=== PATIENT | female | born 1960 | race Caucasian/White ===

== ENCOUNTER 2023-04-13 06:41 | Outpatient (OUT) | payer OTHER, SELFPAY ==
--- NOTE | 2023-04-13 07:12 | MM_ITS ---
Patient: ROSALES RUVALCABA Exam Date: 04/13/2023 : 1960 Gender:F Ordering : DR Varun Roth D.O. Admission #: [id number] Family : Order #: [id number] CLICK HERE TO VIEW EXAM RADIOLOGY REPORT PROCEDURE: MM TOMOSYNTHESIS SCREENING BI COMPARISON: MG MAMM SCREEN ROBBIE W CAD, 05/05/2019. INDICATIONS: Screening Calculator Name NCI Breast Cancer Risk Assessment Tool 5 Year Breast Cancer Risk 2.00% Lifetime Breast Cancer Risk 9.70% Personal Breast Cancer No Personal Ovarian Cancer No Treatments None Family Cancers None LOCATION: [facility] BREAST COMPOSITION: Scattered areas fibroglandular density. FINDINGS: DIAGNOSTIC CATEGORY 1--NEGATIVE. NO CHANGE FROM COMPARISON ASSESSMENT. Scattered benign-appearing calcifications are present. Scattered benign-appearing lymph nodes are present. RIGHT BREAST: No significant suspicious finding. LEFT BREAST: No significant suspicious finding. RECOMMENDATIONS: ROUTINE MAMMOGRAM AND CLINICAL EVALUATION IN 12 MONTHS. PLEASE NOTE: A NORMAL MAMMOGRAM DOES NOT EXCLUDE THE POSSIBILITY OF BREAST CANCER. A CLINICALLY SUSPICIOUS PALPABLE LUMP SHOULD BE BIOPSIED. Dictated by: Castillo Dodd MD on 04/13/2023 at 08:51 Approved by: Castillo Dodd MD on 04/13/2023 at 08:52
[2023-04-13 07:22] LABS: Basophils Percent Auto 0.4 % (0.2-2.0); Eosinophils Absolute Auto 0.1 10^3/uL (0.0-0.7); Eosinophils Percent Auto 1.7 % (0.9-7.0); Hematocrit 40.9 % (36.0-48.0); Hemoglobin 13.5 g/dL (12.0-16.0); Immature Granulocytes Abs Auto 0.01 10^3/uL (0.00-0.03); Immature Granulocytes Pct Auto 0.2 % (0.0-0.5); Lymphocytes Absolute Auto 1.2 10^3/uL (1.2-3.8); Lymphocytes Percent Auto 26.3 % (20.5-60.0); Mean Corpuscular Hemoglobin 30.1 pg (26.7-34.0); Mean Corpuscular Volume 91.1 fL (81.0-99.0); Mean Platelet Volume 9.9 fL (9.5-13.5); Monocytes Absolute Auto 0.5 10^3/uL (0.3-0.8); Monocytes Percent Auto 9.7 % (1.7-12.0); Neutrophils Absolute Auto 2.9 10^3/uL (1.4-6.5); Neutrophils Percent Auto 61.7 % (43.0-75.0); Platelet Count 206 10^3/uL (150-450); Red Blood Count 4.49 10^6/uL (4.20-5.40); Red Cell Distribution Width 12.4 % (11.0-15.0); White Blood Count 4.6 10^3/uL (4.0-11.0)
[2023-04-13 08:39] LABS: Alanine Aminotransferase 24 U/L (14-59); Albumin Globulin Ratio 0.9; Albumin Level 3.6 g/dL (3.4-5.0); Alkaline Phosphatase 51 U/L (46-116); Anion Gap 7.8; Aspartate Amino Transferase 18 U/L (15-37); BUN Creatinine Ratio 17.3; Bilirubin Total 0.8 mg/dL (0.2-1.0); Carbon Dioxide 31.1 mmol/L (21.0-32.0); Chloride 105 mmol/L (98-107); Chol HDL Ratio 3.6; Cholesterol 211 mg/dL (<=200); Estimated GFR (African America >60 (>=60); Estimated GFR (Non-African Ame 54 (>=60); Glucose 109 mg/dL (74-106); HDL Cholesterol 59 mg/dL (40-60); Potassium 3.9 mmol/L (3.5-5.1); Sodium 140 mmol/L (136-145); Thyroid Stimulating Hormone 1.799 uIU/mL (0.358-3.740); Total Protein 7.6 g/dL (6.4-8.2); Triglycerides 59 mg/dL (<=150); VLDL CHOLESTEROL 11.8 mg/dL
== END 2023-04-13 06:42 ==
LOC: MAMMO 06:46
PROVIDERS: PCP Internal Medicine; Visit Provider Internal Medicine
DX: Z00.00 Encounter for general adult medical examination without abnormal findings (principal); Z12.31 Encounter for screening mammogram for malignant neoplasm of breast
CPT/HCPCS: 36415; 77063; 77067; 80053; 80061; 84443; 85025

== ENCOUNTER 2024-04-09 06:50 | Outpatient (OUT) | payer OTHER, SELFPAY ==
--- NOTE | 2024-04-09 06:53 | MM_ITS ---
Patient Name: ROSALES RUVALCABA MR#: [id number] : 1960 Exam Date: 04/09/2024 Ordering Doctor: DR Varun Roth D.O. RADIOLOGY REPORT PROCEDURE: MM TOMOSYNTHESIS SCREENING BI COMPARISON: MM TOMOSYNTHESIS SCREENING BI, 04/13/2023. INDICATIONS: Screening Calculator Name NCI Breast Cancer Risk Assessment Tool 5 Year Breast Cancer Risk 2.10% Lifetime Breast Cancer Risk 9.40% Personal Breast Cancer No Personal Ovarian Cancer No Treatments None Family Cancers None LOCATION: [facility] BREAST COMPOSITION: There are scattered areas of fibroglandular density. FINDINGS: DIAGNOSTIC CATEGORY 1--NEGATIVE. NO CHANGE FROM COMPARISON ASSESSMENT. Scattered benign-appearing calcifications are present. Scattered benign-appearing lymph nodes are present. RIGHT BREAST: No significant suspicious finding. LEFT BREAST: No significant suspicious finding. RECOMMENDATIONS: ROUTINE MAMMOGRAM AND CLINICAL EVALUATION IN 12 MONTHS. PLEASE NOTE: A NORMAL MAMMOGRAM DOES NOT EXCLUDE THE POSSIBILITY OF BREAST CANCER. A CLINICALLY SUSPICIOUS PALPABLE LUMP SHOULD BE BIOPSIED. Dictated by: Castillo Dodd MD on 04/09/2024 at 08:58 Approved by: Castillo Dodd MD on 04/09/2024 at 09:02
[2024-04-09 07:52] LABS: Basophils Percent Auto 0.8 % (0.2-2.0); Eosinophils Absolute Auto 0.1 10^3/uL (0.0-0.7); Eosinophils Percent Auto 1.3 % (0.9-7.0); Hematocrit 40.7 % (36.0-48.0); Hemoglobin 13.1 g/dL (12.0-16.0); Immature Granulocytes Abs Auto 0.01 10^3/uL (0.00-0.03); Immature Granulocytes Pct Auto 0.3 % (0.0-0.5); Lymphocytes Absolute Auto 1.1 10^3/uL (1.2-3.8); Lymphocytes Percent Auto 28.3 % (20.5-60.0); Mean Corpuscular HGB Conc 32.2 g/dL (29.9-35.2); Mean Corpuscular Hemoglobin 29.9 pg (26.7-34.0); Mean Corpuscular Volume 92.9 fL (81.0-99.0); Mean Platelet Volume 10.8 fL (9.5-13.5); Monocytes Absolute Auto 0.3 10^3/uL (0.3-0.8); Monocytes Percent Auto 8.3 % (1.7-12.0); Neutrophils Absolute Auto 2.5 10^3/uL (1.4-6.5); Platelet Count 177 10^3/uL (150-450); Red Blood Count 4.38 10^6/uL (4.20-5.40); Red Cell Distribution Width 12.6 % (11.0-15.0)
[2024-04-09 09:08] LABS: Alanine Aminotransferase 28 U/L (14-59); Albumin Level 3.7 g/dL (3.4-5.0); Alkaline Phosphatase 47 U/L (46-116); Anion Gap 10.6; Aspartate Amino Transferase 23 U/L (15-37); BUN Creatinine Ratio 18.5; Bilirubin Total 0.6 mg/dL (0.2-1.0); Calcium 8.9 mg/dL (8.5-10.1); Carbon Dioxide 30.5 mmol/L (21.0-32.0); Chloride 105 mmol/L (98-107); Chol HDL Ratio 3.8; Cholesterol 218 mg/dL (<=200); Estimated GFR (African America >60 (>=60); Estimated GFR (Non-African Ame 51 (>=60); Globulin 3.8 g/dL; Glucose 101 mg/dL (74-106); HDL Cholesterol 57 mg/dL (40-60); Potassium 4.1 mmol/L (3.5-5.1); Sodium 142 mmol/L (136-145); Thyroid Stimulating Hormone 1.967 uIU/mL (0.358-3.740); Total Protein 7.5 g/dL (6.4-8.2); Triglycerides 62 mg/dL (<=150); VLDL CHOLESTEROL 12.4 mg/dL
== END 2024-04-09 06:51 | disposition home or self-care (01) ==
LOC: MAMMO 06:50
PROVIDERS: PCP Internal Medicine; Visit Provider Internal Medicine
DX: Z00.00 Encounter for general adult medical examination without abnormal findings (principal); Z12.31 Encounter for screening mammogram for malignant neoplasm of breast
CPT/HCPCS: 36415; 77063; 77067; 80053; 80061; 84443; 85025

== ENCOUNTER 2025-05-08 07:06 | Outpatient (OUT) | payer OTHER, SELFPAY ==
--- OUTSIDE RECORDS SUMMARY | 2025-05-08 07:09 | XMS_ITS | CCD ---
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 Name Role Phone VARUN JOHNSON Attending Unavailable VARUN JOHNSON Consulting Unavailable VARUN JOHNSON Admitting Unavailable Varun Johnson Unavailable Allergies Allergy Classification Reported Allergen(s) Allergy Type Date of Onset Reaction(s) Facility (5 sources) Angiotensin-con verting enzyme inhibitor agent Drug allergy [employer]ponDirect [facility] [employer] Other (5 sources) Shellfish Drug allergy Unknown [employer] [facility] [employer] Other (3 sources) Fish derivative Drug allergy 5 Comment:shell fish [facility] [employer] Other (2 sources) Angiotensin Converting Enzyme (Gavin) Inhibitors Allergy to substance 4 cough [facility] (2 sources) Shellfish Allergy to substance 4 Unknown Reaction [facility] (2 sources) Fish Containing Products Allergy to substance 4 Comment:shell fish [facility] Comment on above: Onset Date: 05/07/20 15 Medications Current Medications Medication Drug Class(es) Dates Sig (Normalized) Sig (Original) amLODIPine 5 mg oral tablet (8 sources) Dihydropyridine Calcium Channel Kari Start: 06-20-2024 take 1 tablet by mouth once daily Amlodipine 5 mg tablet Active 0 .ROUTE .COMPLEX 90 June 20, 2024 10:20am TAKE 1 TABLET BY MOUTH EVERY DAY Start: 03-21-2024 End: 06-20-2024 take 1 tablet by mouth once daily Amlodipine 5 mg tablet Discontinued 5 MG PO Daily March 21, 2024 12:00am June 20, 2024 10:20am take 1 tablet by ramila th every twenty-four hours amLODIPine Besylate 5 MG 1 tablet Orally Once a day Active codeine phosphate 2 mg/ml / guaiFENesin 20 mg/ml oral solution (1 source) Opioid Agonist Start: 10-24-2023 take 10 mL by mouth four times daily as needed for cough guaiFENesin-Codeine 100-10 MG/5ML 10 mL as needed Orally qid as needed for cough for 7 days Sep, Active doxycycline hyclate 100 mg oral capsule (1 source) Tetracycline-cla ss Drug Start: 10-24-2023 take 1 capsule by mouth every twelve hours Doxycycline Hyclate 100 MG 1 capsule Orally Twice a day for 5 days Sep, Active escitalopram 5 mg oral tablet (2 sources) Serotonin Reuptake Inhibitor Start: 11-13-2022 take 1 tablet by mouth every twenty-four hours Escitalopram Oxalate 5 MG 1 tablet Orally Once a day for 30 day(s) Oct, Active losartan potassium 100 mg oral tablet (8 sources) Angiotensin 2 Receptor Krai Start: 09-26-2024 take 1 tablet by mouth once daily Losartan 100 mg tablet Active 0 .ROUTE .COMPLEX 90 September 26, 2024 8:06am TAKE 1 TABLET BY MOUTH EVERY DAY Start: 03-21-2024 End: 09-26-2024 take 1 tablet by mouth once daily Losartan 100 mg tablet Discontinued 100 MG PO Daily March 21, 2024 12:00am September 26, 2024 8:06am take 1 tablet by ramila th every twenty-four hours Losartan Potassium 100 MG 1 tablet Orally Once a day Active Magnesium (1 source) Start: 10-10-2024 take 4 tablets by mouth once daily Magnesium 200 mg tablet Active 800 MG PO Daily October 10, 2024 1:00am pantoprazole 40 mg delayed release oral tablet (8 sources) Proton Pump Inhibitor Start: 06-20-2024 take 1 tablet by mouth once daily at breakfast Pantoprazole 40 mg tablet,delayed release (DR/EC) Active 0 .ROUTE .COMPLEX 90 June 20, 2024 10:20am TAKE 1 TABLET BY MOUTH ONCE A DAY ON AN EMPTY STOMACH FOLLOWED IN 30 MINUTES BY BREAKFAST Start: 03-21-2024 End: 06-20-2024 take 1 tablet by mouth once daily Pantoprazole 40 mg tablet,delayed release (DR/EC) Discontinued 40 MG PO Daily March 21, 2024 12:00am June 20, 2024 10:20am take 1 tablet by ramila th every twenty-four hours Pantoprazole Sodium 40 MG 1 tablet Orally Once a day Active 24 hr venlafaxine 37.5 mg extended release oral capsule (1 source) Serotonin and Norepinephrine Reuptake Inhibitor Start: 03-27-2025 take 1 capsule by mouth once daily Venlafaxine 37.5 mg capsule,extended release 24hr Active 37.5 MG PO Daily March 27, 2025 12:00am Problems Active Problems Problem Classification Problem Date Documented Date Episodic/Chronic Acute bronchitis (1 source) Acute bronchitis due to other specified organisms Episodic Chronic kidney disease (1 source) Chronic kidney disease; Translations: [Chronic kidney disease, unspecified] 04-14-2024 Chronic Complications of surgical procedures or medical care (5 sources) Postsurgical menopause; 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] Chronic Esophageal disorders (7 sources) Gastro-esophageal reflux disease with esophagitis; Translations: [Gastroesophageal reflux disease with esophagitis without hemorrhage] 03-19-2024 Chronic Essential hypertension (17 sources) Hypertensive disorder; Translations: [Essential (primary) hypertension] Chronic Malaise and fatigue (7 sources) Weakness; Translations: [Other fatigue] Onset: 10-06-2020 Episodic Miscellaneous mental health disorders (6 sources) Primary insomnia; Translations: [Primary insomnia] Chronic Mood disorders (17 sources) Seasonal affective disorder; Translations: [Other recurrent depressive disorders] Chronic Other acquired deformities (1 source) Mallet finger; Translations: [Mallet finger of right finger(s)] 10-10-2024 Episodic Other nutritional; endocrine; and metabolic disorders (1 source) Obese class I; Translations: [Obesity, unspecified] Chronic Other nutritional; endocrine; and metabolic disorders (5 sources) Obesity; Translations: [Obesity, unspecified] Chronic Other nutritional; endocrine; and metabolic disorders (1 source) Obesity, unspecified Chronic Other nutritional; endocrine; and metabolic disorders (3 sources) Body mass index 30+ - obesity; Translations: [Body mass index (BMI) 33.0-33.9, adult] Chronic Other nutritional; endocrine; and metabolic disorders (3 sources) Obesity caused by energy imbalance; Translations: [Other obesity due to excess calories] Chronic Other nutritional; endocrine; and metabolic disorders (1 source) Other obesity due to excess calories Chronic Other nutritional; endocrine; and metabolic disorders (1 source) Body mass index (BMI) 33.0-33.9, adult Chronic Other screening for suspected conditions (not mental disorders or infectious disease) (4 sources) Encounter for screening mammogram for malignant neoplasm of breast; Translations: [Encounter for screening for malignant neoplasm of colon] Episodic Spondylosis; intervertebral disc disorders; other back problems (13 sources) Lumbosacral spondylosis with radiculopathy; Translations: [Other spondylosis with radiculopathy, lumbosacral region] Chronic Past or Other Problems Problem Classification Problem Date Documented Da te Episodic/Chronic Esophageal disorders (3 sources) Esophageal disorders; Translations: [Gastroesophageal reflux disease with esophagitis without hemorrhage] Viral infection (1 source) Disease caused by 2019-nCoV; Translations: [COVID-19] Results Test Name Value Interpretation Reference Range Facil ity CBC AUTO DIFFon 10-06-2020 Basophils (Bld) [#/Vol] 0.0 103/ul Normal 0.0-0.1 [facility] [place] Comment on above: Performed By: #### C BC #### [facility] [address] [place], [place] [phone] Shabbir Emperatriz Basophils/100 WBC (Bld) 0.2 % Normal 0.2-2.0 [facility] [place] Comment on above: Performed By: #### C BC #### [facility] [address], [place] [address] Shabbir Emperatriz Eosinophils (Bld) [#/Vol] 0.0 103/ul Normal 0.0-0.7 [facility] [place] Comment on above: Performed By: #### C BC #### [facility] [address] [place], [place] [phone] Shabbir Emperatriz Eosinophils/100 WBC (Bld) 0.7 % Critically low 0.9-7.0 [facility] [place] Comment on above: Performed By: #### C BC #### [facility] [address], [place] [address] Shabbir Emperatriz Erythrocyte distribution width (RBC) [Ratio] 11.7 % Normal 11.0-15.0 [facility] [place] Comment on above: Performed By: #### C BC #### [facility] [address] [place], [place] [phone] Shabbir Emperatriz Hematocrit (Bld) [Volume fraction] 35.8 % Critically low 36.0-48.0 [facility] [place] Comment on above: Performed By: #### C BC #### [facility] [address] [place], [place] [phone] Shabbir Emperatriz Hemoglobin (Bld) [Mass/Vol] 12.2 g/dL Normal 12.0-16.0 [facility] [place] Comment on above: Performed By: #### C BC #### [facility] [address] [place], [place] [phone] Shabbir Emperatriz IG # 0.02 10e3/ul Normal 0.00-0.03 [facility] [place] Comment on above: Performed By: #### C BC #### [facility] [address] [place] [address] Shabbir Emperatriz IG % 0.3 % Normal 0.0-0.5 [facility] [place] Comment on above: Performed By: #### C BC #### [facility] [address] [place] [address] Shabbir Emperatriz Lymphocytes (Bld) [#/Vol] 1.5 103/ul Normal 1.2-3.8 [facility] [place] Comment on above: Performed By: #### C BC #### [facility] [address] [place] [address] Shabbir Emperatriz Lymphocytes/100 WBC (Bld) 25.4 % Normal 20.5-60.0 [facility] [place] Comment on above: Performed By: #### C BC #### [facility] [address] [place], [place] [phone] Shabbir Awan MANUAL DIFF REQ NO Normal [facility] Comment on above: Performed By: #### C BC #### [facility] [address] [place], [place] [phone] Shabbir Emperatriz MCH (RBC) [Entitic mass] 30.0 pg Normal 26.7-34.0 [facility] Comment on above: Performed By: #### C BC #### [facility] [address] [place] [address] Shabbirdenice Gamezen MCHC (RBC) [Mass/Vol] 34.1 g/dL Normal 29.9-35.2 [facility] Comment on above: Performed By: #### C BC #### [facility] [address], [place] [address] Shabbir Emperatriz MCV (RBC) [Entitic vol] 88.2 fL Normal 81.0-99.0 [facility] Comment on above: Performed By: #### C BC #### [facility] [address], [place] [address] Shabbir Emperatriz Monocytes (Bld) [#/Vol] 0.6 103/ul Normal 0.3-0.8 [facility] Comment on above: Performed By: #### C BC #### [facility] [address] [place] [phone] Shabbir Emperatriz Monocytes/100 WBC (Bld) 10.0 % Normal 1.7-12.0 [facility] Comment on above: Performed By: #### C BC #### [facility] [address] [place] [address] Shabbir Emperatriz Neutrophils (Bld) [#/Vol] 3.8 103/ul Normal 1.4-6.5 [facility] Comment on above: Performed By: #### C BC #### [facility] [address] [place] [address] Shabbir Emperatriz Neutrophils/100 WBC (Bld) 63.4 % Normal 43.0-75.0 [facility] Comment on above: Performed By: #### C BC #### [facility] [address] [place] [address] Shabbir Emperatriz Platelet mean volume (Bld) [Entitic vol] 9.8 fL Normal 9.5-13.5 [facility] Comment on above: Performed By: #### C BC #### [facility] [address] [place] [address] Shabbir Emperatriz Platelets (Bld) [#/Vol] 263 103/ul Normal 150-450 [facility] Comment on above: Performed By: #### C BC #### [facility] [address] [place] [address] Shabbir Emperatriz RBC (Bld) [#/Vol] 4.06 106/ul Critically low 4.20-5.40 [facility] Comment on above: Performed By: #### C BC #### [facility] [address] [place], [place] [phone] Shabbir Emperatriz WBC (Bld) [#/Vol] 6.0 103/ul Normal 4.0-11.0 [facility] Comment on above: Performed By: #### C BC #### [facility] [address] [place], [place] [phone] Shabbir Emperatriz PROF CHEM 8 (BAS METB)on Anion gap [Moles/Vol] 12.2 mmol/L Normal [facility] [place] Comment on above: Performed By: #### B MIGUEL, TSH #### [facility] [address] [place] [address] Shabbir Emperatriz Calcium [Mass/Vol] 9.4 mg/dL Normal 8.4-10.2 [facility] Comment on above: Performed By: #### B MIGUEL, TSH #### [facility] [address] [place] [address] Shabbir Emperatriz Chloride [Moles/Vol] 98 mmol/L Normal 98-107 [facility] [place] Comment on above: Performed By: #### B MIGUEL, TSH #### [facility] [address] [place], [place] [phone] Shabbir Emperatriz CO2 [Moles/Vol] 29.4 mmol/L Normal 22.0-30.[address] [facility] Comment on above: Performed By: #### B MIGUEL, TSH #### [facility] [address] [place], [place] [phone] Shabbir Emperatriz Creatinine [Mass/Vol] 1.08 mg/dL Critically high 0.52-1.04 [facility] [place] Comment on above: Performed By: #### B MIGUEL, TSH #### [facility] [address] [place], [place] [phone] Shabbir Emperatriz EGFR-AF PALESTINIAN >60 Normal >=60 [facility] Comment on above: Performed By: #### B MIGUEL, TSH #### [facility] [address] [place], [place] [phone] Shabbir Emperatriz EGFR-NON AF PALESTINIAN 52 mL/min/1.73m2 Critically low >=60 [facility] [place] Comment on above: Performed By: #### B MP, TSH #### [facility] [address] [place] [address] Shabbir Emperatriz Glucose [Mass/Vol] 94 mg/dL Normal 74-106 [facility] Comment on above: Performed By: #### B MP, TSH #### [facility] [address] [place] [address] Shabbir Emperatriz Potassium [Moles/Vol] 3.6 mmol/L Normal 3.4-5.0 [facility] [place] Comment on above: Performed By: #### B MP, TSH #### [facility] [address] [place] [address] Shabbir Emperatriz Sodium [Moles/Vol] 136 mmol/L Critically low 137-145 [facility] Comment on above: Performed By: #### B MP, TSH #### [facility] [address] [place] [address] Shabbir Emperatriz Urea nitrogen [Mass/Vol] 16.0 mg/dL Normal 7.0-17.0 [facility] [place] Comment on above: Performed By: #### B MP, TSH #### [facility] [address] [place] [address] Shabbir Emperatriz Urea nitrogen/Creatinine [Mass ratio] 14.8 mg/mg Normal [facility] [place] Comment on above: Performed By: #### B MP, TSH #### [facility] [address] [place] [address] Shabbir Emperatriz TSHon 10-06-2020 TSH Qn SEE BELOW Normal [facility] [place] Comment on above: Result Comment: <0.3 4 UIU/ml HYPERTHYROID 0.34-5.60 UIU/ml EUTHYROID >5.60 UIU/ml HYPOTHYROID Performed By: #### B MP, TSH #### [facility] [address] [place] [address] Shabbir Emperatriz TSH Qn 1.344 uIU/mL Normal 0.470-4.680 [facility] Comment on above: Performed By: #### B MP, TSH #### [facility] [address] [place] [address] Shabbir Awan Vital Signs Date Time Vital Sign Value Performing Clinician Facility 03-27-2025 08:32-0400 Body height 157.48 cm [facility] 03-27-2025 08:32-0400 Body mass index (BMI) [Ratio] 34 kg/m2 [facility] 03-27-2025 08:32-0400 Body weight 84.48 kg [facility] 03-27-2025 08:32-0400 Diastolic blood pressure 62 mm[Hg] [facility] 03-27-2025 08:32-0400 Heart rate 52 /min [facility] 03-27-2025 08:32-0400 Respiratory rate 12 /min [facility] 03-27-2025 08:32-0400 Systolic blood pressure 128 mm[Hg] [facility] 03-21-2024 08:39-0400 Body height 157.48 cm [facility] 03-21-2024 08:39-0400 Body mass index (BMI) [Ratio] 33.3 kg/m2 [facility] 03-21-2024 08:39-0400 Body weight 82.78 kg [facility] 03-21-2024 08:39-0400 Diastolic blood pressure 79 mm[Hg] [facility] 03-21-2024 08:39-0400 Heart rate 61 /min [facility] 03-21-2024 08:39-0400 Respiratory rate 12 /min [facility] 03-21-2024 08:39-0400 Systolic blood pressure 131 mm[Hg] [facility] 09-14-2023 08:30-0500 Body height 157.48 cm Varun Ball Other [facility] Other 09-14-2023 08:30-0500 Body mass index (BMI) [Ratio] 33.32 kg/m2 Varun Ball Other [facility] Other 09-14-2023 08:30-0500 Body weight 82.65 kg Varun Ball Other [facility] Other 09-14-2023 08:30-0500 Diastolic blood pressure 89 mm[Hg] Varun Ball Other [facility] Other 09-14-2023 08:30-0500 Respiratory rate 12 /min Varun Ball Other [facility] Other 09-14-2023 08:30-0500 Systolic blood pressure 162 mm[Hg] Varun Ball Other [facility] Other 03-14-2023 09:30-0400 Body height 157.48 cm Varun Ball Other [facility] Other 03-14-2023 09:30-0400 Body mass index (BMI) [Ratio] 33.28 kg/m2 Varun Ball Other [facility] Other 03-14-2023 09:30-0400 Body weight 82.56 kg Varun Ball Other [facility] Other 03-14-2023 09:30-0400 Diastolic blood pressure 83 mm[Hg] Varun Ball Other [facility] Other 03-14-2023 09:30-0400 Respiratory rate 12 /min Varun Ball Other [facility] Other 03-14-2023 09:30-0400 Systolic blood pressure 127 mm[Hg] Varun Ball Other [facility] Other 11-13-2022 09:30-0500 Body height 157.48 cm Varun Ball Other [facility] Other 11-13-2022 09:30-0500 Body mass index (BMI) [Ratio] 32.7 kg/m2 Varun Johnson Other [facility] Other 11-13-2022 09:30-0500 Body weight 81.1 kg Varun Johnson Other [facility] Other 11-13-2022 09:30-0500 Diastolic blood pressure 80 mm[Hg] Varun Johnson Other [facility] Other 11-13-2022 09:30-0500 Respiratory rate 12 /min Varun Johnson Other [facility] Other 11-13-2022 09:30-0500 Systolic blood pressure 122 mm[Hg] Varun Johnson Other [facility] Other Encounters Encounter Date Encounter Type Care Provider Facility Start: 03-27-2025 End: 03-27-2025 ambulatory [facility] Work Phone: Start: 03-27-2025 End: 03-27-2025 Encounter for general adult medical examination without abnormal findings [facility] Start: 03-27-2025 End: 03-27-2025 Patient encounter procedure [facility] Work Phone: Start: 03-21-2024 End: 03-21-2024 ambulatory [facility] Work Phone: Start: 03-21-2024 End: 03-21-2024 Encounter for general adult medical examination without abnormal findings [facility] Start: 03-21-2024 End: 03-21-2024 Patient encounter procedure [facility] Work Phone: Start: 10-24-2023 End: 10-24-2023 ambulatory Varun Johnson Other [facility] Other Start: 10-24-2023 Office outpatient vi sit 15 minutes Varun Johnson [facility] Start: 09-14-2023 End: 09-14-2023 ambulatory Varun Johnson Other [facility] Other Start: 09-14-2023 Office outpatient vi sit 25 minutes Varun Johnson [facility] Start: 05-04-2023 End: 05-04-2023 ambulatory Varun Johnson Other [facility] Other Start: 05-04-2023 Telephone encounter Varun Johnson [facility] Start: 03-14-2023 End: 03-14-2023 ambulatory Varun Johnson Other [facility] Other Start: 03-14-2023 Encounter for genera l adult medical examination without abnormal findings Varun Johnson [facility] Start: 03-14-2023 Periodic preventive med est patient 40-64yrs Varun Johnson [facility] Start: 11-13-2022 End: 11-13-2022 ambulatory Varun Johnson Other [facility] Other Start: 11-13-2022 Office outpatient vi sit 15 minutes Varun Johnson [facility] Start: 11-09-2022 Patient encounter procedure Varun Johnson Other [facility] Other Start: 10-06-2020 End: 10-07-2020 Patient encounter procedure VARUN JOHNSON Facility: Procedures Date Procedure Procedure Detail Performing Clinician Depression screening Ronniehomer tristen Johnson Other Screening mammography [facility] in [place] Other Plan of Treatment Date Care Activity Detail Author MG Breast - bilateral Screening [facility] Immunizations Immunization Date Immunization Notes Care Provider Fa cility 09-24-2020 influenza virus vaccine, split virus (incl. purified surface antigen) Varun Johnson Other [facility] Other 09-24-2020 influenza virus vaccine, unspecified formulation [facility] 07-29-2019 influenza virus vaccine, split virus (incl. purified surface antigen) Varun Johnson Other [facility] Other 07-29-2019 influenza virus vaccine, unspecified formulation [facility] 07-17-2018 influenza virus vaccine, split virus (incl. purified surface antigen) Varun Johnson Other [facility] [employer] Other 07-17-2018 influenza virus vaccine, unspecified formulation [facility] Payers Date Payer Category Payer Unknown [id number] 1958 Unknown [id number] Private Health Insurance [id number] Social History Date Type Detail Facility Sex Assigned At [facility] [employer] Other Start: 1960 Sex Assigned At Female F [facility] Start: 03[facility]27[facility] Start: 03-27-2025 Sex Female (finding) [facility] Evaluation note 10-24-2023 Note Date & Type Note Facility 10-24-2023 Evaluation note Encounter Date Diagnosis Assessment Notes Sep, Acute bronchitis due to other specified organisms (ICD-10 - J20.8) Instructed to use Robitussin or Mucinex for cough, saline or Flonase NS for congestion, Tylenol for pain and fever. Sep, Primary hypertension (ICD-10 - I10) Avoid use of decongestants , which would aggravate HTN [facility] [employer] Other Evaluation note 09-14-2023 Note Date & Type Note Facility 09-14-2023 Evaluation note Encounter Date Diagnosis Assessment Notes Aug, Primary hypertension (ICD-10 - I10) This patient is instructed to consume a healthy, low-fat, low-salt diet. They are also encouraged to continue exercise to achieve/mainta in a normal BMI. Aug, Lumbar spondylosis (ICD-10 - M47.816) The patient is instructed to avoid bending, twisting or lifting. They are to use intermittent heat and ice as needed. They may schedule a massage or gentle manipulation. They may safely use Tylenol as needed. Aug, Mild episode of recurrent major depressive disorder (ICD-10 - F33.0) Encouraged to follow a healthy diet and exercise routine. She is to keep active Continue light therapy SUggest trial of [place]'s wart Aug, Other obesity due to excess calories (ICD-10 - E66.09) This patient has been instructed on a low-fat, high-fiber diet. They are instructed to reduce calories, portion sizes and snacks. It is recommended that they exercise for 30 minutes, 3-5 times weekly. Aug, Body mass index [BMI] 33.0-33.9, adult (ICD-10 - Z68.33) Aug, Gastroesophageal reflux disease with esophagitis without hemorrhage (ICD-10 - K21.00) Diet instructions: Smaller portions, avoid eating and laying flat, avoid eating or drinking prior to bedtime. Weight loss. [facility] Other Evaluation note 03-14-2023 Note Date & Type Note Facility 03-14-2023 Evaluation note Encounter Date Diagnosis Assessment Notes February, Wellness examination (ICD-10 - Z00.00) Healthy diet and exercise. Reviewed age-appropriate preventive testing recommended. February, Primary hypertension (ICD-10 - I10) This patient is instructed to consume a healthy, low-fat, low-salt diet. They are also encouraged to continue exercise to achieve/maintai n a normal BMI. Patient is instructed on home BP measurements: - rest for 5 minutes w/o talking- positioned w/ feet on floor and arm supported- average best 2/3 readings w/ goal < 135-85 February, Lumbar spondylosis (ICD-10 - M47.816) The patient is instructed to avoid bending, twisting or lifting. They are to use intermittent heat and ice as needed. They may schedule a massage or gentle manipulation. They may safely use Tylenol as needed. February, Primary insomnia (ICD-10 - F51.01) Proper sleep routine. Avoid exercise, eating, computer/phone/ TV prior to bedtime February, Mild episode of recurrent major depressive disorder (ICD-10 - F33.0) Failed to tolerate multiple SSRI Healthy diet, exercise and keep active February, Screening mammogram for breast cancer (ICD-10 - Z12.31) Continue SBE February, Screening for colon cancer (ICD-10 - Z12.11) [facility] Other Evaluation note 11-13-2022 Note Date & Type Note Facility 11-13-2022 Evaluation note Encounter Date Diagnosis Assessment Notes Oct, Hypertension (ICD-10 - I10) This patient is instructed to consume a healthy, low-fat, low-salt diet. They are also encouraged to continue exercise to achieve/maintai n a normal BMI. Oct, Seasonal affective disorder (ICD-10 - F33.8) Healthy diet, exercise, consistent sleep routine. Keep active. Restart Lexapro at lower dose and only titrate if tolerating and incomplete response. Oct, Obesity (BMI 30.0-34.9) (ICD-10 - E66.9) This patient has been instructed on a low-fat, high-fiber diet. They are instructed to reduce calories, portion sizes and snacks. It is recommended that they exercise for 30 minutes, 3-5 times weekly. Oct, Lumbar spondylosis (ICD-10 - M47.816) The patient is instructed to avoid bending, twisting or lifting. They are to use intermittent heat and ice as needed. They may schedule a massage or gentle manipulation. They may safely use Tylenol as needed. [facility] Other Evaluation note Note Date & Type Note Facility Evaluation note No Information [facility] Other Evaluation note Note Date & Type Note Facility Evaluation note Diagnosis Onset Date GERD (gastroesophageal reflux disease) acute Hypertension acute Lumbar spondylosis acute Seasonal affective disorder acute Wellness examination noneact [facility] Work Phone: Evaluation note Note Date & Type Note Facility Evaluation note Diagnosis Onset Date Resolution GERD (gastroesophageal reflux disease) acute March 27, 2025 8 :19am Hypertension acute March 27 8:19am Lumbar spondylosis acute March 272024 8:19am Screening mammogram for breast cancer acute March 27, 2025 8 :19am Seasonal affective disorder acute March 27, 2025 8 :19am Wellness examination noneactive March 27, 2025 8:19am [facility] Work Phone: History general Narrative - Reported Note Date & Type Note Facility History general Narrative - Reported Type Medical History Obesity (BMI 30-39.9) Medical History COVID Medical History Hypertension Medical History Lumbar spondylosis Medical History Seasonal affective disorder Medical History Gastroesophageal ref lux disease with esophagitis without hemorrhage Medical History Surgical menopause Medical History Lumbosacral spondylo sis with radiculopathy Medical History Primary insomnia Medical History Mild episode of recu rrent major depressive disorder Medical History Screening mammogram, encounter f or Medical History Encounter for well w ritika exam with routine gynecological exam Surgical History cholecystectomy 2001 Surgical History BALDEV/BSO 2000 Surgical History appendectomy 2000 Hospitalization History see surgical history [facility] Other Summary Purpose Family History Relationship Condition Age at Onset Recorded Date/T scotty brother Hypertension Unknown father Diabetes mellitus Unknown Heart disease Unknown Hypertension Unknown Not Specified Unknown Relationship Condition Age at Onset Recorded Date/T scotty brother Hypertension Unknown father Diabetes mellitus Unknown Heart disease Unknown Hypertension Unknown mother Unknown Advance Directives Advance Directive Response Recorded Date/ Time Advance Directives No November 21, 2023 1:08pm Chief Complaint and Reason for Visit Chief Complaint Wellness Reason for Visit GERD (gastroesophage al reflux disease) Hypertension Lumbar spondylosis Seasonal affective disorder Wellness examination Chief Complaint Admit Date Wellness March 27, 2025 8:19a m Reason for Visit Admit Date GERD (gastroesophageal reflux disease) M ay 2024 8:19am Hypertension March 27, 2025 8:19a m Lumbar spondylosis March 27, 2025 8:19a m Screening mammogram for breast cancer Ma y 2024 8:19am Seasonal affective disorder March 27 8:19am Wellness examination March 27, 2025 8:19 am Additional Source Comments INFORMATION SOURCE (unrecogn ized section and content) DATE CREATED AUTHOR 10/21/2020 [facility] [place] [place] [facility] REASON FOR VISIT (unrecogniz ed section and content) 4 MONTHLab Results6 month Fo llow up4 month Follow up, wellness examextreme cough [phone] Care Teams (unrecognized sec tion and content) Team Status: Active Member Role Status Dates Varun Johnson DO Primary Care Provider Active Team Status: Inactive Member Role Status Dates Varun Ball , DO Primary Care Provide r, Attending Provider Active Start: March 21, 2024 End: March 21, 2024 Team Status: Inactive Member Role Status Dates Varun Johnson , DO Primary Care Provide r, Attending Provider Active Start: March 27, 2025 End: March 27, 2025 Goals (unrecognized section and content) Goals may be documented in a n alternate section FOR RECORDS PERTAINING TO PATIENTS WHO ARE OR HAVE BEEN ENROLLED IN A CHEMICAL DEPENDENCY/SUBSTANCEABUSE PROGRAM, SOME INFORMATION MAY BE OMITTED. This clinical summary was aggregated from multiple sources. Caution should be exercised in using it in the provision of clinical care. This summary normalizes information from multiple sources, and as a consequence, information in this document may materially change the coding, format and clinical context of patient data. In addition, data may be omitted in some cases. CLINICAL DECISIONS SHOULD BE BASED ON THE PRIMARY CLINICAL RECORDS. [facility] [email or web address] [facility]. provides no warranty or guarantee of the accuracy or completeness of information in this document.
[2025-05-08 07:57] LABS: Hematocrit 40.0 % (36.0-48.0); Hemoglobin 13.2 g/dL (12.0-16.0); Immature Granulocytes Abs Auto 0.01 10^3/uL (0.00-0.03); Immature Granulocytes Pct Auto 0.2 % (0.0-0.5); Lymphocytes Absolute Auto 1.5 10^3/uL (1.2-3.8); Mean Corpuscular HGB Conc 33.0 g/dL (29.9-35.2); Mean Corpuscular Hemoglobin 30.8 pg (26.7-34.0); Mean Corpuscular Volume 93.5 fL (81.0-99.0); Platelet Count 193 10^3/uL (150-450); Red Blood Count 4.28 10^6/uL (4.20-5.40); White Blood Count 4.3 10^3/uL (4.0-11.0)
--- NOTE | 2025-05-08 08:00 | MM_ITS ---
Patient Name: ROSALES RUVALCABA MR#: [id number] : 1960 Exam Date: 05/08/2025 Ordering Doctor: DR MOLLY JOHNSON D.O. RADIOLOGY REPORT PROCEDURE: MM TOMOSYNTHESIS SCREENING BI COMPARISON: MM TOMOSYNTHESIS SCREENING BI, 04/09/2024. MM TOMOSYNTHESIS SCREENING BI, 04/13/2023. MG MAMM SCREEN ROBBIE W CAD, 05/05/2019. INDICATIONS: Screening Calculator Name NCI Breast Cancer Risk Assessment Tool 5 Year Breast Cancer Risk 2.20% Lifetime Breast Cancer Risk 9.10% Personal Breast Cancer No Personal Ovarian Cancer No Treatments None Family Cancers Sister with colon cancer at age 72. LOCATION: [facility] BREAST COMPOSITION: There are scattered areas of fibroglandular density. FINDINGS: RIGHT BREAST: No significant suspicious finding. LEFT BREAST: No significant suspicious finding. DIAGNOSTIC CATEGORY 1--NEGATIVE. RECOMMENDATIONS: ROUTINE MAMMOGRAM AND CLINICAL EVALUATION IN 12 MONTHS. PLEASE NOTE: A NORMAL MAMMOGRAM DOES NOT EXCLUDE THE POSSIBILITY OF BREAST CANCER. A CLINICALLY SUSPICIOUS PALPABLE LUMP SHOULD BE BIOPSIED. Dictated by: Dinesh Gaming MD on 05/08/2025 at 11:19 Approved by: Dinesh Gaming MD on 05/08/2025 at 11:21
[2025-05-08 08:42] LABS: Alanine Aminotransferase 24 U/L (14-59); Albumin Globulin Ratio 0.9; Albumin Level 3.4 g/dL (3.4-5.0); Alkaline Phosphatase 48 U/L (46-116); Anion Gap 11.0; Aspartate Amino Transferase 14 U/L (15-37); Blood Urea Nitrogen 29.0 mg/dL (7.0-18.0); Calcium 9.1 mg/dL (8.5-10.1); Carbon Dioxide 30.2 mmol/L (21.0-32.0); Chloride 105 mmol/L (98-107); Cholesterol 190 mg/dL (<=200); Estimated GFR (African America 49 (>=60 mL/min/1.73m^2); Estimated GFR (Non-African Ame 41 (>=60 mL/min/1.73m^2); Globulin 3.6 g/dL; Glucose 99 mg/dL (74-106); HDL Cholesterol 58 mg/dL (40-60); Potassium 4.2 mmol/L (3.5-5.1); Sodium 142 mmol/L (136-145); Thyroid Stimulating Hormone 3.401 uIU/mL (0.358-3.740); Total Protein 7.0 g/dL (6.4-8.2); Triglycerides 63 mg/dL (<=150); VLDL CHOLESTEROL 12.6 mg/dL
== END 2025-05-08 07:07 | disposition home or self-care (01) ==
LOC: MAMMO 07:07
PROVIDERS: PCP Internal Medicine; Visit Provider Internal Medicine
DX: Z00.00 Encounter for general adult medical examination without abnormal findings (principal); Z12.31 Encounter for screening mammogram for malignant neoplasm of breast; Z80.0 Family history of malignant neoplasm of digestive organs
CPT/HCPCS: 36415; 77063; 77067; 80053; 80061; 84443; 85025

== ENCOUNTER 2025-05-29 08:17 | Outpatient (OUT) | payer OTHER, SELFPAY ==
--- NOTE | 2025-05-29 | US_ITS ---
[place] [id number] Patient Name: ROSALES RUVALCABA MRN: [id number] date: 1960 Sex: F Assigned Patient Location: [place] Current Patient Location: [place] Accession/Order Number: [id number] Exam Date: 05/29/2025 10:40 Report Date: 05/29/2025 10:40 At the request of: MOLLY JOHNSON DO Procedure: US renal BI BILATERAL RENAL AND BLADDER ULTRASOUND CLINICAL HISTORY: CHRONIC KIDNEY DISEASE N18.9 COMPARISON: None FINDINGS: Estimation of renal size is approximately 10.1 cm on the right and 8.6 cm on the left. No contour deforming mass, shadowing stone or hydronephrosis. The urinary bladder is partially distended with a volume of 536 ml. No shadowing stone or focal lesion. US/US renal BI IMPRESSION: No acute findings. Impression dictated by: Allen Spnecer Jr., DJoaoOJoao 05/29/2025 10:40 AM Dictation Location: [place] [address] Electronically authenticated by: [id number] Y Date: 05/29/2025 10:40
--- OUTSIDE RECORDS SUMMARY | 2025-05-29 08:37 | XMS_ITS | CCD ---
Author Organization [facility] Care Team Providers Care Rotational Moulding Operator Name Role Phone VARUN JOHNSON Attending Unavailable VARUN JOHNSON Consulting Unavailable VARUN JOHNSON Admitting Unavailable Varun Johnson Unavailable Allergies Allergy Classification Reported Allergen(s) Allergy Type Date of Onset Reaction(s) Facility (5 sources) Angiotensin-con verting enzyme inhibitor agent Drug allergy ustyme [facility] Other (5 sources) Shellfish Drug allergy Unknown Q2ebanking [facility] Other (3 sources) Fish derivative Drug allergy 5 Comment:shell fish [facility] Other (2 sources) Angiotensin Converting Enzyme (Gavin) Inhibitors Allergy to substance 4 cough [facility] (2 sources) Shellfish Allergy to substance 4 Unknown Reaction [facility] (2 sources) Fish Containing Products Allergy to substance 4 Comment:shell fish [facility] Comment on above: Onset Date: 05/07/20 15 [...] oral tablet (8 sources) Angiotensin 2 Receptor Kari Start: 09-26-2024 take 1 tablet by mouth [...] Basophils (Bld) [#/Vol] 0.0 103/ul Normal 0.0-0.1 [facility] Comment on above: Performed By: #### C BC #### [facility] [address] [place], [place] [id number] Shabbir Emperatriz Basophils/100 WBC (Bld) 0.2 % Normal 0.2-2.0 [facility] Comment on above: Performed By: #### C BC #### [facility] [address] [place], [place] [address] Shabbir Emperatriz Eosinophils (Bld) [#/Vol] 0.0 103/ul Normal 0.0-0.7 [facility] Comment on above: Performed By: #### C BC #### [facility] [address] [place], [place] [id number] Shabbir Emperatriz Eosinophils/100 WBC (Bld) 0.7 % Critically low 0.9-7.0 [facility] Comment on above: Performed By: #### C BC #### [facility] [address] [place], [place] [address] Shabbir Emperatriz Erythrocyte distribution width (RBC) [Ratio] 11.7 % Normal 11.0-15.0 [facility] Comment on above: Performed By: #### C BC #### [facility] [address] [place], [place] [id number] Shabbir Emperatriz Hematocrit (Bld) [Volume fraction] 35.8 % Critically low 36.0-48.0 [facility] Comment on above: Performed By: #### C BC #### [facility] [address] [place], [place] [id number] Shabbir Emperatriz Hemoglobin (Bld) [Mass/Vol] 12.2 g/dL Normal 12.0-16.0 [facility] Comment on above: Performed By: #### C BC #### [facility] [address] [place], [place] [id number] Shabbir Emperatriz IG # 0.02 10e3/ul Normal 0.00-0.03 [facility] Comment on above: Performed By: #### C BC #### [facility] [address] [place] [address] Shabbir Emperatriz IG % 0.3 % Normal 0.0-0.5 [facility] Comment on above: Performed By: #### C BC #### [facility] [address] [place] [address] Shabbir Emperatriz Lymphocytes (Bld) [#/Vol] 1.5 103/ul Normal 1.2-3.8 [facility] Comment on above: Performed By: #### C BC #### [facility] [address] [place] [address] Shabbir Emperatriz Lymphocytes/100 WBC (Bld) 25.4 % Normal 20.5-60.0 [facility] Comment on above: Performed By: #### C BC #### [facility] [address] [place], [place] [id number] Shabbir Awan MANUAL DIFF REQ NO Normal [facility] Comment on above: Performed By: #### C BC #### [facility] [address] [place], [place] [id number] Shabbir Emperatriz MCH (RBC) [Entitic mass] 30.0 pg Normal 26.7-34.0 [facility] Comment on above: Performed By: #### C BC #### [facility] [address] [place] [address] Shabbirdenice Gamezen MCHC (RBC) [Mass/Vol] 34.1 g/dL Normal 29.9-35.2 [facility] Comment on above: Performed By: #### C BC #### [facility] [address] [place], [place] [address] Shabbir Emperatriz MCV (RBC) [Entitic vol] 88.2 fL Normal 81.0-99.0 [facility] Comment on above: Performed By: #### C BC #### [facility] [address] [place], [place] [address] Shabbir Emperatriz Monocytes (Bld) [#/Vol] 0.6 103/ul Normal 0.3-0.8 [facility] Comment on above: Performed By: #### C BC #### [facility] [address] [place] [address] Shabbir Emperatriz Monocytes/100 WBC (Bld) 10.0 % Normal 1.7-12.0 [facility] Comment on above: Performed By: #### C BC #### [facility] [address] [place] [address] Shabbir Emperatriz Neutrophils (Bld) [#/Vol] 3.8 103/ul Normal 1.4-6.5 [facility] Comment on above: Performed By: #### C BC #### [facility] [address] [place] [address] Shabbir Emperatriz Neutrophils/100 WBC (Bld) 63.4 % Normal 43.0-75.0 [facility] Comment on above: Performed By: #### C BC #### [facility] [address] [place] [address] Shabbir Emperatriz Platelet mean volume (Bld) [Entitic vol] 9.8 fL Normal 9.5-13.5 [facility] Comment on above: Performed By: #### C BC #### [facility] [address] [place] [address] Shabbir Emperatriz Platelets (Bld) [#/Vol] 263 103/ul Normal 150-450 [facility] Comment on above: Performed By: #### C BC #### [facility] [address] [place] [address] Shabbir Emperatriz RBC (Bld) [#/Vol] 4.06 106/ul Critically low 4.20-5.40 [facility] Comment on above: Performed By: #### C BC #### [facility] [address] [place], [place] [id number] Shabbir Emperatriz WBC (Bld) [#/Vol] 6.0 103/ul Normal 4.0-11.0 [facility] Comment on above: Performed By: #### C BC #### [facility] [address] [place], [place] [id number] Shabbir Emperatriz PROF CHEM 8 (BAS METB)on Anion gap [Moles/Vol] 12.2 mmol/L Normal [facility] Comment on above: Performed By: #### B MIGUEL, TSH #### [facility] [address] [place] [address] Shabbir Emperatriz Calcium [Mass/Vol] 9.4 mg/dL Normal 8.4-10.2 [facility] Comment on above: Performed By: #### B MIGUEL, TSH #### [facility] [address] [place] [address] Shabbir Emperatriz Chloride [Moles/Vol] 98 mmol/L Normal 98-107 [facility] Comment on above: Performed By: #### B MIGUEL, TSH #### [facility] [address] [place], [place] [id number] Shabbir Emperatriz CO2 [Moles/Vol] 29.4 mmol/L Normal 22.0-30.0 [facility] Comment on above: Performed By: #### B MIGUEL, TSH #### [facility] [address] [place], [place] [address] Shabbir Emperatriz Creatinine [Mass/Vol] 1.08 mg/dL Critically high 0.52-1.04 [facility] Comment on above: Performed By: #### B MIGUEL, TSH #### [facility] [address] [place], [place] [address] Shabbir Emperatriz EGFR-AF MOROCCAN >60 Normal >=60 [facility] Comment on above: Performed By: #### B MIGUEL, TSH #### [facility] [address] [place], [place] [address] Shabbir Emperatriz EGFR-NON AF MOROCCAN 52 mL/min/1.73m2 Critically low >=60 [facility] Comment on above: Performed By: #### B MP, TSH #### [facility] [address] [place] [address] Shabbir Emperatriz Glucose [Mass/Vol] 94 mg/dL Normal 74-106 [facility] Comment on above: Performed By: #### B MP, TSH #### [facility] [address] [place] [address] Shabbir Emperatriz Potassium [Moles/Vol] 3.6 mmol/L Normal 3.4-5.0 [facility] Comment on above: Performed By: #### B MP, TSH #### [facility] [address] [place] [address] Shabbir Emperatriz Sodium [Moles/Vol] 136 mmol/L Critically low 137-145 [facility] Comment on above: Performed By: #### B MP, TSH #### [facility] [address] [place] [address] Shabbir Emperatriz Urea nitrogen [Mass/Vol] 16.0 mg/dL Normal 7.0-17.0 [facility] Comment on above: Performed By: #### B MP, TSH #### [facility] [address] [place] [address] Shabbir Emperatriz Urea nitrogen/Creatinine [Mass ratio] 14.8 mg/mg Normal [facility] Comment on above: Performed By: #### B MP, TSH #### [facility] [address] [place] [address] Shabbir Emperatriz TSHon 10-06-2020 TSH Qn SEE BELOW Normal [facility] Comment on above: Result Comment: <0.3 4 UIU/ml HYPERTHYROID 0.34-5.60 UIU/ml EUTHYROID >5.60 UIU/ml HYPOTHYROID Performed By: #### B MP, TSH #### [facility] [address] [place] [address] Shabbir Emperatriz TSH Qn 1.344 uIU/mL Normal 0.470-4.680 [facility] Comment on above: Performed By: #### B MP, TSH #### [facility] [address] [place] [address] hSabbir Awan Vital Signs Date Time Vital Sign Value Performing Clinician Facility 03-27-2025 08:32-0400 Body height 157.48 cm [facility] 03-27-2025 08:32-0400 Body mass index (BMI) [Ratio] 34 kg/m2 [facility] 03-27-2025 08:32-0400 Body weight 84.48 kg [facility] 03-27-2025 08:32-0400 Diastolic blood pressure 62 mm[Hg] [facility] 03-27-2025 08:32-0400 Heart rate 52 /min [facility] 03-27-2025 08:32-0400 Respiratory rate 12 /min [facility] 03-27-2025 08:32-0400 Systolic blood pressure 128 mm[Hg] [facility] 03-21-2024 08:39-0400 Body height 157.48 cm [facility] 03-21-2024 08:39-0400 Body mass index (BMI) [Ratio] 33.3 kg/m2 [facility] 03-21-2024 08:39-0400 Body weight 82.78 kg [facility] 03-21-2024 08:39-0400 Diastolic blood pressure 79 mm[Hg] [facility] 03-21-2024 08:39-0400 Heart rate 61 /min [facility] 03-21-2024 08:39-0400 Respiratory rate 12 /min [facility] 03-21-2024 08:39-0400 Systolic blood pressure 131 mm[Hg] [facility] 09-14-2023 08:30-0500 Body height 157.48 cm Varun Ball Other [facility] Other 09-14-2023 08:30-0500 Body mass index (BMI) [Ratio] 33.32 kg/m2 Varun Ball Other [facility] Other 09-14-2023 08:30-0500 Body weight 82.65 kg Varun Ball Other [facility] Other 09-14-2023 08:30-0500 Diastolic blood pressure 89 mm[Hg] Varun Ball Other [facility] Other 09-14-2023 08:30-0500 Respiratory rate 12 /min Varun Ball Other [facility] Other 09-14-2023 08:30-0500 Systolic blood pressure 162 mm[Hg] Varun Ball Other [facility] Other 03-14-2023 09:30-0400 Body height 157.48 cm Varun Ball Other [facility] Other 03-14-2023 09:30-0400 Body mass index (BMI) [Ratio] 33.28 kg/m2 Varun Ball Other [facility] Other 03-14-2023 09:30-0400 Body weight 82.56 kg Varun Ball Other [facility] Other 03-14-2023 09:30-0400 Diastolic blood pressure 83 mm[Hg] Varun Ball Other [facility] Other 03-14-2023 09:30-0400 Respiratory rate 12 /min Varun Ball Other [facility] Other 03-14-2023 09:30-0400 Systolic blood pressure 127 mm[Hg] Varun Ball Other [facility] Other 11-13-2022 09:30-0500 Body height 157.48 cm Varun Ball Other [facility] Other 11-13-2022 09:30-0500 Body mass index (BMI) [Ratio] 32.7 kg/m2 Varun Johnson Other [facility] Other 11-13-2022 09:30-0500 Body weight 81.1 kg Varun Johnson Other [facility] Other 11-13-2022 09:30-0500 Diastolic blood pressure 80 mm[Hg] Varun Johnson Other [facility] Other 11-13-2022 09:30-0500 Respiratory rate 12 /min Varun Johnson Other [facility] Other 11-13-2022 09:30-0500 Systolic blood pressure 122 mm[Hg] Varun Johnson Other [facility] Other Encounters Encounter Date Encounter Type Care Provider Facility Start: 03-27-2025 End: 03-27-2025 ambulatory [facility] Work Phone: Start: 03-27-2025 End: 03-27-2025 Encounter for general adult medical examination without abnormal findings [facility] Start: 03-27-2025 End: 03-27-2025 Patient encounter procedure [facility] Work Phone: Start: 03-21-2024 End: 03-21-2024 ambulatory [facility] Work Phone: Start: 03-21-2024 End: 03-21-2024 Encounter for general adult medical examination without abnormal findings [facility] Start: 03-21-2024 End: 03-21-2024 Patient encounter procedure [facility] Work Phone: Start: 10-24-2023 End: 10-24-2023 ambulatory Varun Johnson Other [facility] Other Start: 10-24-2023 Office outpatient vi sit 15 minutes Varun Johnson [facility] Start: 09-14-2023 End: 09-14-2023 ambulatory Varun Johnson Other [facility] Other Start: 09-14-2023 Office outpatient vi sit 25 minutes Varun Johnson [facility] Start: 05-04-2023 End: 05-04-2023 ambulatory Varun Johnson Other [facility] Other Start: 05-04-2023 Telephone encounter Varun Johnson [facility] Start: 03-14-2023 End: 03-14-2023 ambulatory Varun Johnson Other [facility] Other Start: 03-14-2023 Encounter for genera l adult medical examination without abnormal findings Varun Johnson [facility] Start: 03-14-2023 Periodic preventive med est patient 40-64yrs Varun Johnson [facility] Start: 11-13-2022 End: 11-13-2022 ambulatory Varun Johnson Other [facility] Other Start: 11-13-2022 Office outpatient vi sit 15 minutes Varun Johnson [facility] Start: 11-09-2022 Patient encounter procedure Varun Johnson Other [facility] Other Start: 10-06-2020 End: 10-07-2020 Patient encounter procedure VARUN JOHNSON Facility: Procedures Date Procedure Procedure Detail Performing Clinician Depression screening Ronniehomer tristen Johnson Other Screening mammography [place] in [place] Other Plan of Treatment Date Care Activity Detail Author MG Breast - bilateral Screening [facility] Immunizations Immunization Date Immunization Notes Care Provider Fa cility 09-24-2020 influenza virus vaccine, split virus (incl. purified surface antigen) Varun Johnson Other [facility] Other 09-24-2020 influenza virus vaccine, unspecified formulation [facility] 07-29-2019 influenza virus vaccine, split virus (incl. purified surface antigen) Varnu Johnson Other [facility] Other 07-29-2019 influenza virus vaccine, unspecified formulation [facility] 07-17-2018 influenza virus vaccine, split virus (incl. purified surface antigen) Varun Johnson Other [facility] Other 07-17-2018 influenza virus vaccine, unspecified formulation [facility] Payers Date Payer Category Payer Unknown [id number] 1958 Unknown [id number] Private Health Insurance [id number] Social History Date Type Detail Facility Sex Assigned At [facility] Other Start: 1960 Sex Assigned At Female F [facility] Start: 03-27-2025 [facility] Start: 03-27-2025 Sex Female (finding) [facility] Evaluation note 10-24-2023 Note Date & Type Note Facility 10-24-2023 Evaluation note Encounter Date Diagnosis Assessment Notes Sep, Acute bronchitis due to other specified organisms (ICD-10 - J20.8) Instructed to use Robitussin or Mucinex for cough, saline or Flonase NS for congestion, Tylenol for pain and fever. Sep, Primary hypertension (ICD-10 - I10) Avoid use of decongestants , which would aggravate HTN [facility] Other Evaluation note 09-14-2023 Note Date & [...] active Continue light therapy SUggest trial of Fredy's wart Aug, Other obesity due to excess [...] or drinking prior to bedtime. Weight loss. [facility] Other Evaluation note 03-14-2023 Note Date & [...] Screening for colon cancer (ICD-10 - Z12.11) [facility] Other Evaluation note 11-13-2022 Note Date & [...] They may safely use Tylenol as needed. [facility] Other Evaluation note Note Date & Type Note Facility Evaluation note No Information [facility] Other Evaluation note Note Date & Type Note Facility Evaluation note Diagnosis Onset Date GERD (gastroesophageal reflux disease) acute Hypertension acute Lumbar spondylosis acute Seasonal affective disorder acute Wellness examination noneact [facility] Work Phone: Evaluation note Note Date & [...] Wellness examination noneactive March 27, 2025 8:19am [facility] Work Phone: History general Narrative - [...] appendectomy 2000 Hospitalization History see surgical history [facility] Other Summary Purpose Family History Relationship Condition [...] and content) DATE CREATED AUTHOR 10/21/2020 The Nilda Amie menard REASON FOR VISIT (unrecogniz ed section and content) 4 MONTHLab Results6 month Fo llow up4 month Follow up, wellness examextreme cough [phone] Care Teams (unrecognized sec tion and content) [...] BE BASED ON THE PRIMARY CLINICAL RECORDS. [facility]. provides no warranty or guarantee of the accuracy or completeness of information in this document.
== END 2025-05-29 08:18 | disposition home or self-care (01) ==
LOC: US 08:18
PROVIDERS: PCP Internal Medicine; Visit Provider Internal Medicine
DX: N18.9 Chronic kidney disease, unspecified (principal)
CPT/HCPCS: 76775; 82043; 82570